=== PATIENT | female | born 1955 | race Caucasian/White ===

== ENCOUNTER 2018-12-07 06:53 | Day surgery (SDC) | payer BC ==
[~2018-12-07] VITALS: Ht 167.6 cm; Wt 92.5 kg
[~2018-12-07 06:53] MED LIST: OME20T PO
[2018-12-07] MEDS ORDERED: LIDOCAINE 2%HCL (LOCAL ANESTH.) INJ 20ML MDV ONE (07:14)
[2018-12-07] MEDS ORDERED: IODIXANOL 320MG/ML 100ML BTL IV ONE (07:15)
[2018-12-07] MEDS ORDERED: fentaNYL CITRATE 100 MCG/2 ML VL ONE (07:33)
[2018-12-07] MEDS ORDERED: ANGIOMAX 250 MG VIAL IV ONE (07:33)
[2018-12-07] MEDS ORDERED: VERAPAMIL 2.5MG/ML INJ 2ML VIAL IV ONE (07:33)
[2018-12-07] MEDS ORDERED: SODIUM CHL 0.9% 0 ML ONE (07:34)
[2018-12-07] MEDS ORDERED: MIDAZOLAM HCL 1MG/1ML-2 ML VIAL ONE ×2 (07:34→07:53)
[2018-12-07] MEDS ORDERED: SODIUM CHLORIDE 0.9% 1,000 ML IV SCH (08:10)
== END 2018-12-07 11:05 | disposition home or self-care (01) ==
LOC: CATH 06:53
PROVIDERS: ATTEND Internal Medicine
DX: I25.10 Atherosclerotic heart disease of native coronary artery without angina pectoris (principal); K21.9 Gastro-esophageal reflux disease without esophagitis; E66.8 Other obesity; F17.210 Nicotine dependence, cigarettes, uncomplicated; Z90.49 Acquired absence of other specified parts of digestive tract; Z98.84 Bariatric surgery status; Z90.710 Acquired absence of both cervix and uterus; Z98.890 Other specified postprocedural states; Z72.89 Other problems related to lifestyle; Z68.32 Body mass index [BMI] 32.0-32.9, adult; Z79.899 Other long term (current) drug therapy
CPT/HCPCS: 75630; 93458; A6257; C1760; C1769; C1894; J1644; J2250; J3010; J7030; Q9967; 93005; 99152

== ENCOUNTER 2018-12-13 11:19 | Emergency (ER) | payer BC ==
[~2018-12-13] VITALS: Ht 167.6 cm; Wt 90.7 kg
[2018-12-13 11:27] VITALS: BP 129/82
== END 2018-12-13 14:12 | disposition left against medical advice (07) ==
LOC: ER 11:31
DX: S30.1XXD Contusion of abdominal wall, subsequent encounter (principal); I25.10 Atherosclerotic heart disease of native coronary artery without angina pectoris; I10 Essential (primary) hypertension; Z48.01 Encounter for change or removal of surgical wound dressing; X58.XXXD Exposure to other specified factors, subsequent encounter